=== PATIENT | male | born 1970 | race Caucasian/White ===

== ENCOUNTER 2016-12-30 09:04 | Outpatient (CLI) | payer OTHER ==
--- NOTE | 2016-12-30 20:25 | RAD ---
CHEST TWO VIEWS 12/30/16 Comparison is made with a 01/01/16 study. The heart is normal in size and the lungs are clear. There is no sign of pneumonia or pleural effusi on. An old healed fracture of the left fifth rib is noted. The trachea is midline. IMPRESSION: No acute findings. POS: HOME
== END 2016-12-30 09:05 | disposition home or self-care (01) ==
LOC: BURRAD 09:04
PROVIDERS: ATTEND Physician Assistant
DX: J40 Bronchitis, not specified as acute or chronic (principal)
CPT/HCPCS: 71020

== ENCOUNTER 2017-01-03 10:41 | Emergency (ER) | payer OTHER | END 2017-01-03 11:03 | disposition home or self-care (01) | LOC: BURERS 10:41 | DX: K04.7 Periapical abscess without sinus (principal); F17.210 Nicotine dependence, cigarettes, uncomplicated | CPT/HCPCS: 99282 ==

== ENCOUNTER 2017-07-31 12:18 | Emergency (ER) | payer OTHER ==
[2017-07-31] MEDS ORDERED: methylPREDNISolone Sod Succ/PF 125 MG/2 ML VIAL ONE (12:40)
[2017-07-31] MEDS ORDERED: Ibuprofen 800 MG TAB ONE (12:40)
== END 2017-07-31 12:48 | disposition home or self-care (01) ==
LOC: BURERS 12:18
DX: S56.911A Strain of unspecified muscles, fascia and tendons at forearm level, right arm, initial encounter (principal); F17.210 Nicotine dependence, cigarettes, uncomplicated; X50.1XXA Overexertion from prolonged static or awkward postures, initial encounter
CPT/HCPCS: 96372; J2930

== ENCOUNTER 2017-09-29 09:45 | Emergency (ER) | payer OTHER ==
[2017-09-29] MEDS ORDERED: AMOXicillin 250 MG CAP ONE (09:59)
== END 2017-09-29 10:00 | disposition home or self-care (01) ==
LOC: BURERS 09:45
DX: J20.9 Acute bronchitis, unspecified (principal); F17.210 Nicotine dependence, cigarettes, uncomplicated
CPT/HCPCS: 99283

== ENCOUNTER 2018-03-11 23:22 | Emergency (ER) | payer OTHER ==
[2018-03-11] MEDS ORDERED: HYDROcodone/Acetaminophen 5/325 mg Tablet ONE (23:53)
--- NOTE | 2018-03-12 07:00 | RAD ---
RIGHT FOREARM 2 VIEWS: Date: 03/11/18 FINDINGS: No fracture or dislocation seen. The radius and ulna both appear intact. IMPRESSION: No significant findings. POS: HOME
== END 2018-03-12 00:01 | disposition home or self-care (01) ==
LOC: BURERS 23:22
DX: S50.11XA Contusion of right forearm, initial encounter (principal); F17.210 Nicotine dependence, cigarettes, uncomplicated; W19.XXXA Unspecified fall, initial encounter

== ENCOUNTER 2020-04-20 13:55 | Outpatient (CLI) | payer BC ==
--- NOTE | 2020-04-20 18:41 | RAD ---
CHEST TWO VIEWS: 04/20/20 Comparison is made with the 12/20/19 study. There has been no adverse interval change. The heart is normal in size and the lungs are clear, thoug h they are mildly hyperexpanded. The mediastinum appears normal. There are no acute bony changes. IMPRESSION: No acute thoracic findings. POS: HOME
== END 2020-04-20 13:56 | disposition home or self-care (01) ==
LOC: BURRAD 13:55
PROVIDERS: ATTEND Physician Assistant
DX: R05 Cough (principal)
CPT/HCPCS: 71046

== ENCOUNTER 2020-06-27 09:38 | Emergency (ER) | payer BC, OTHER ==
[2020-06-28 13:44] LABS: SARS-CoV-2 MS2 Positive; SARS-CoV-2 N Gene Negative; SARS-CoV-2 S Gene Negative; SARS-CoV-2 by NAA Not Detected (NotDetected); SARS-CoV-2 orf1ab Negative
== END 2020-06-27 10:18 | disposition home or self-care (01) ==
LOC: BURERS 09:38
DX: J06.9 Acute upper respiratory infection, unspecified (principal); I10 Essential (primary) hypertension; F17.210 Nicotine dependence, cigarettes, uncomplicated; Z20.828 Contact with and (suspected) exposure to other viral communicable diseases
CPT/HCPCS: 87635; 99283; U0003

== ENCOUNTER 2020-10-08 19:14 | Emergency (ER) | payer BC ==
[2020-10-08] MEDS ORDERED: Acetaminophen 500 MG TAB ONE (20:30)
[2020-10-08] MEDS ORDERED: Albuterol 200 PUFF (6.7GM INHALER) ONE (20:30)
--- NOTE | 2020-10-09 09:22 | RAD ---
CHEST 1 VIEW: Date: 10/08/2020 INDICATION: History of cough. COMPARISON: Prior exam dated 04/20/2020. FINDINGS: Mild scarring in the lingula is stable. Lungs are clear. No pleural effusion or pneumothorax evident. No acute osseous abnormality evident. IMPRESSION: No acute abnormality. POS: [facility]
[2020-10-09 21:54] LABS: SARS-CoV-2 MS2 Positive; SARS-CoV-2 N Gene Positive; SARS-CoV-2 S Gene Positive; SARS-CoV-2 by NAA DETECTED (NotDetected); SARS-CoV-2 orf1ab Positive
== END 2020-10-08 22:50 | disposition home or self-care (01) ==
LOC: BURERS 19:14
DX: U07.1 COVID-19 (principal); I10 Essential (primary) hypertension; F17.210 Nicotine dependence, cigarettes, uncomplicated
CPT/HCPCS: 71045; 87635; 87804; U0003

== ENCOUNTER 2021-03-04 13:50 | Emergency (ER) | payer BC ==
[2021-03-04] MEDS ORDERED: Tetracaine 0.5% PF 4 ML BOT ONE (15:43)
[2021-03-04] MEDS ORDERED: Acetaminophen 500 MG TAB ONE (17:28)
== END 2021-03-04 17:39 | disposition home or self-care (01) ==
LOC: BURERS 13:50
DX: H20.9 Unspecified iridocyclitis (principal); J32.2 Chronic ethmoidal sinusitis; J32.1 Chronic frontal sinusitis; J32.0 Chronic maxillary sinusitis; I10 Essential (primary) hypertension; F17.210 Nicotine dependence, cigarettes, uncomplicated; Z86.16 Personal history of COVID-19
CPT/HCPCS: 70450

== ENCOUNTER 2021-07-30 12:21 | Outpatient (CLI) | payer BC | END 2021-07-30 12:22 | disposition home or self-care (01) | LOC: BURRAD 12:21 | PROVIDERS: ATTEND Registered Nurse Community Health | DX: R20.0 Anesthesia of skin (principal) | CPT/HCPCS: 72100 ==

== ENCOUNTER 2021-08-20 09:57 | Emergency (ER) | payer BC | END 2021-08-20 11:20 | disposition home or self-care (01) | LOC: BURERS 09:57 | DX: M54.16 Radiculopathy, lumbar region (principal); I10 Essential (primary) hypertension; F17.210 Nicotine dependence, cigarettes, uncomplicated | CPT/HCPCS: 72131 ==

== ENCOUNTER 2021-11-03 12:55 | Emergency (ER) | payer BC ==
[2021-11-03 21:44] LABS: SARS-CoV-2 PCR by NAA Not Detected (NotDetected)
== END 2021-11-03 13:38 | disposition home or self-care (01) ==
LOC: BURERS 12:55
DX: R05.9 Cough, unspecified (principal); R50.9 Fever, unspecified; Z20.822 Contact with and (suspected) exposure to COVID-19; I10 Essential (primary) hypertension; F17.210 Nicotine dependence, cigarettes, uncomplicated
CPT/HCPCS: 99283; U0003; U0005

== ENCOUNTER 2022-04-04 19:26 | Emergency (ER) | payer BC, SELFPAY | END 2022-04-04 19:55 | disposition home or self-care (01) | LOC: BURERS 19:26 | DX: M54.10 Radiculopathy, site unspecified (principal); I10 Essential (primary) hypertension; F17.210 Nicotine dependence, cigarettes, uncomplicated | CPT/HCPCS: 99283 ==

== ENCOUNTER 2023-01-16 10:57 | Outpatient (CLI) | payer OTHER | END 2023-01-16 10:58 | disposition home or self-care (01) | LOC: BURRAD 10:57 | PROVIDERS: ATTEND Physician Assistant | DX: M25.511 Pain in right shoulder (principal) ==

== ENCOUNTER 2023-04-06 07:34 | Emergency (ER) | payer OTHER ==
[2023-04-06] MEDS ORDERED: Nitroglycerin 0.4 MG TAB 1 EACH ONE (08:00)
[2023-04-06] MEDS ORDERED: Aspirin Chewable 81 MG TAB ONE (08:00)
[2023-04-06 08:08] LABS: #Basophils 0.2 thou/uL (0.0-0.2); #Eosinphils 0.3 thou/uL (0.0-0.7); #Lymphocytes 1.6 thou/uL (1.20-3.40); #Monocytes 0.5 thou/uL (0.11-0.59); #Neutrophils 5.6 thou/uL (1.40-6.50); %Basophils 1.9 % (0.0-1.0); %Eosinophils 3.6 % (0.0-10.0); %Lymphocytes 19.7 % (21.0-51.0); %Monocytes 6.3 % (0.0-10.0); %Neutrophils 68.5 % (42.0-75.0); Hemoglobin 15.1 g/dL (14.0-18.0); Mean Corpuscular HGB CONC 32.5 g/dL (32.0-36.0); Mean Corpuscular Volume 92.2 fl (78.0-98.0); Mean Platelet Volume 6.8 fL (7.4-10.4); Platelet Count 284 10x3/uL (130-400); Red Blood Cell (RBC) Count 5.04 mill/uL (4.70-6.10); White Blood Cell (WBC) Count 8.1 10x3/uL (4.8-10.8)
[2023-04-06 08:20] LABS: ALT (SGPT) 21 U/L (8-55); AST (SGOT) 16 U/L (5-34); Albumin 3.8 g/dL (3.5-5.0); Alkaline Phosphatase 75 U/L (40-110); Anion Gap 13 mmol/L (10-20); BUN (Urea Nitrogen) 11 mg/dL (8.4-25.7); Bilirubin, Total 0.3 mg/dL (0.2-1.2); Calc. Creatinine Clearance 0 mL/min (70-130); Calcium 8.7 mg/dL (7.8-10.44); Carbon Dioxide 21 mmol/L (22-29); Chloride 109 mmol/L (98-107); Estimated GFR 95; Globulin 2.5 g/dL (2.4-3.5); Glucose 179 mg/dL (70-105); Potassium 3.7 mmol/L (3.5-5.1); Protein, Total 6.3 g/dL (6.0-8.3); Sodium 139 mmol/L (136-145)
[2023-04-06 10:27] LABS: Troponin I Less than 0.010 ng/mL (< 0.028)
== END 2023-04-06 11:26 | disposition home or self-care (01) ==
LOC: BURERS 07:34
DX: M94.0 Chondrocostal junction syndrome [Tietze] (principal); I10 Essential (primary) hypertension; F17.210 Nicotine dependence, cigarettes, uncomplicated
CPT/HCPCS: 36415; 71046; 80053; 83880; 84484; 85025; 93005; 94760

== ENCOUNTER 2023-07-25 08:07 | Emergency (ER) | payer OTHER ==
[2023-07-25] MEDS ORDERED: HYDROcodone/Acetaminophen 5/325 mg Tablet ONE (08:23)
== END 2023-07-25 08:48 | disposition home or self-care (01) ==
LOC: BURERS 08:07
DX: S22.32XA Fracture of one rib, left side, initial encounter for closed fracture (principal); S20.212A Contusion of left front wall of thorax, initial encounter; I10 Essential (primary) hypertension; F17.210 Nicotine dependence, cigarettes, uncomplicated; Y04.8XXA Assault by other bodily force, initial encounter; Z79.899 Other long term (current) drug therapy
CPT/HCPCS: 71046

== ENCOUNTER 2024-05-13 17:36 | Emergency (ER) | payer OTHER ==
[2024-05-13] MEDS ORDERED: Dicyclomine 20 MG TAB ONE (17:55)
[2024-05-13] MEDS ORDERED: Ondansetron PF 4 MG/2 ML Vial ONE ×2 (17:55→18:29)
[2024-05-13 18:13] LABS: Hematocrit 44.3 % (42.0-52.0); Hemoglobin 15.3 g/dL (14.0-18.0); Mean Corpuscular HGB CONC 34.6 g/dL (32.0-36.0); Mean Corpuscular Hemoglobin 29.8 pg (27.0-31.0); Mean Corpuscular Volume 86.2 fl (78.0-98.0); Mean Platelet Volume 7.1 fL (7.4-10.4); Platelet Count 248 10x3/uL (130-400); RBC Distribution Width 12.1 % (11.5-14.5); Red Blood Cell (RBC) Count 5.14 mill/uL (4.70-6.10); White Blood Cell (WBC) Count 10.6 10x3/uL (4.8-10.8)
[2024-05-13 18:21] LABS: ALT (SGPT) 26 U/L (8-55); AST (SGOT) 24 U/L (5-34); Alkaline Phosphatase 54 U/L (40-110); Anion Gap 17 mmol/L (10-20); BUN (Urea Nitrogen) 15 mg/dL (8.4-25.7); Bilirubin, Total 0.4 mg/dL (0.2-1.2); Calc. Creatinine Clearance 0 mL/min (70-130); Calcium 9.2 mg/dL (7.8-10.44); Carbon Dioxide 19 mmol/L (22-29); Chloride 105 mmol/L (98-107); Estimated GFR 87; Globulin 2.9 g/dL (2.4-3.5); Glucose 109 mg/dL (70-105); Lipase 14 U/L (8-78); Potassium 3.7 mmol/L (3.5-5.1); Protein, Total 6.9 g/dL (6.0-8.3); Sodium 137 mmol/L (136-145)
[2024-05-13 18:28] LABS: Band 17 % (5-11); Lymphocytes 12 % (21-51); MDiff Complete? YES; Monocytes 7 % (0-10); Neutrophil 64 % (42-75); Platelet Adequacy Comment Appears Adequate
[2024-05-13] MEDS ORDERED: Ketorolac Tromethamine 30 MG (1 mL) VIAL ONE (18:29)
== END 2024-05-13 18:50 | disposition home or self-care (01) ==
LOC: BURERS 17:36
DX: A08.4 Viral intestinal infection, unspecified (principal); I10 Essential (primary) hypertension; F17.210 Nicotine dependence, cigarettes, uncomplicated
CPT/HCPCS: 80053; 83690; 85025; 96361; 96374; 96375; 96376; J1885; J2405

== ENCOUNTER 2024-05-15 10:39 | Emergency (ER) | payer OTHER ==
[2024-05-15] MEDS ORDERED: Pantoprazole DR 40 MG TAB ONE (11:13)
[2024-05-15 11:22] LABS: Bilirubin Small (Negative); Blood, Urine Trace (Negative); Clarity Clear (Clear); Glucose, Urine (Dipstick) Negative (Negative); Ketone, Urine Trace mg/dL (Negative); Leukocyte Negative (Negative); Nitrite Negative (Negative); Protein, Urine (Dipstick) 30 mg/dL (Neg-Trace); Urobilinogen 0.2 mg/dL (Less than 2); pH, Urine 5.5 (5.0-9.0)
[2024-05-15 11:25] LABS: Specific Gravity, Urine 1.027 (1.002-1.036)
[2024-05-15 11:27] LABS: Hematocrit 43.7 % (42.0-52.0); Hemoglobin 14.9 g/dL (14.0-18.0); Mean Corpuscular HGB CONC 34.1 g/dL (32.0-36.0); Mean Corpuscular Hemoglobin 29.9 pg (27.0-31.0); Mean Corpuscular Volume 87.4 fl (78.0-98.0); Mean Platelet Volume 7.3 fL (7.4-10.4); Platelet Count 280 10x3/uL (130-400); RBC Distribution Width 12.3 % (11.5-14.5); Red Blood Cell (RBC) Count 4.99 mill/uL (4.70-6.10); White Blood Cell (WBC) Count 9.5 10x3/uL (4.8-10.8)
[2024-05-15 11:31] LABS: Anion Gap 15 mmol/L (10-20); BUN (Urea Nitrogen) 12 mg/dL (8.4-25.7); Calc. Creatinine Clearance 0 mL/min (70-130); Calcium 8.9 mg/dL (7.8-10.44); Carbon Dioxide 21 mmol/L (22-29); Chloride 107 mmol/L (98-107); Estimated GFR 99; Glucose 113 mg/dL (70-105); Potassium 3.6 mmol/L (3.5-5.1); Sodium 139 mmol/L (136-145)
[2024-05-15 11:42] LABS: Band 16 % (5-11); Eosinophils 1 % (0-10); Lymphocytes 19 % (21-51); MDiff Complete? YES; Monocytes 11 % (0-10); Neutrophil 53 % (42-75); Platelet Adequacy Comment Appears Adequate
[2024-05-15 11:48] LABS: Bacteria/HPF Rare-Few HPF (None Seen); CAUTI Indications for Culture Pelvic or flank pain; Mucous/LPF Few LPF (<2+); RBC/HPF 0-3 HPF (0-3); Squamous Epithelial 0-3 HPF (0-3); WBC/HPF None Seen HPF (0-3)
[2024-05-15 11:49] LABS: Urine Culture Reflex No No
[2024-05-15] MEDS ORDERED: Amoxicillin/Potassium Clav 875 MG TAB ONE (12:54)
[2024-05-15] MEDS ORDERED: Iopamidol 370 76% 100 ML VIAL ONE (14:17)
== END 2024-05-15 13:04 | disposition home or self-care (01) ==
LOC: BURERS 10:39
DX: K52.9 Noninfective gastroenteritis and colitis, unspecified (principal); N28.9 Disorder of kidney and ureter, unspecified; F17.210 Nicotine dependence, cigarettes, uncomplicated; I10 Essential (primary) hypertension
CPT/HCPCS: 36415; 74177; 80048; 81001; 82274; 85025; Q9967